=== PATIENT | male | born 1945 | race Caucasian/White ===

== ENCOUNTER 2020-10-07 12:48 | Day surgery (SDC) | payer MEDICARE, BC ==
[2020-10-07] MEDS ORDERED: Sodium Chloride 0.9% 10 ML Syringe FLUSH PRN (13:00)
[2020-10-07] MEDS ORDERED: Lactated Ringers 1,000 ML IV SCH (13:00)
[2020-10-07] MEDS ORDERED: Midazolam 1 MG/ML 2 ML SDV ONE (14:49)
[2020-10-07] MEDS ORDERED: Propofol 200 MG/20 ML SDV ONE (14:49)
--- NOTE | 2020-10-07 15:10 | PCM.PN ---
- General Info Date of Service: 10/07/20 - Review of Systems Systems Review Comment:: 75-year-old male here for screening colonoscopy. His last colon exam was over 10 years ago. He denies any recent change in bowel pattern or rectal bleeding. The patient is medically stable to proceed today. His recent history and physical is reviewed. No significant changes are noted. I have discussed the proposed colonoscopy with the patient. Risks such as but not limited to bleeding and GI injury reviewed. He agrees to proceed. - Patient Data Vitals - Most Recent: Last Vital Signs Temp 97.4 F 10/07/20 13:12 Pulse 88 10/07/20 13:12 Resp 18 10/07/20 13:12 BP 116/74 10/07/20 13:12 Pulse Ox 93 L 10/07/20 13:12 Weight - Most Recent: 79.379 kg Med Orders - Current: Current Medications Lactated Ringer's (Ringers, Lactated) 1,000 mls @ 50 mls/hr IV ASDIRECTED TREVOR Last Admin: 10/07/20 13:30 Dose: 50 mls/hr Documented by: Sodium Chloride (Sodium Chloride 0.9% 10 Ml Syringe) 10 ml FLUSH Q8HR PRN PRN Reason: keep vein open Discontinued Medications Midazolam HCl (Midazolam 1 Mg/Ml 2 Ml Sdv) Confirm Administered Dose 2 mg .ROUTE .STK-MED ONE Stop: 10/07/20 14:50 Propofol (Propofol 200 Mg/20 Ml Sdv) Confirm Administered Dose 400 mg .ROUTE .STK-MED ONE Stop: 10/07/20 14:50 Sepsis Event Note - Focused Exam Vital Signs: Vital Signs Temp Pulse Resp BP Pulse Ox 10/07/20 13:12 97.4 F 88 18 116/74 93 L - Problem List Review Problem List Initiated/Reviewed/Updated: Yes - My Orders Last 24 Hours: My Active Orders 10/06/20 16:00 Resuscitation Status Routine 10/07/20 Breakfast Nothing Per Oral Diet [DIET] 10/07/20 13:00 Peripheral IV Care [RC] . DIRECTED Lactated Ringers [Ringers, Lactated] 1,000 ml IV ASDIRECTED Sodium Chloride 0.9% [Saline Flush] 10 ml FLUSH Q8HR PRN Peripheral IV Insertion Adult [OM.PC] Routine 10/07/20 14:00 Patient to Empty Bladder [RC] ASDIRECTED 10/07/20 14:30 Verify Patient Consent Obtain [RC] ASDIRECTED - Assessment Assessment:: Colon cancer screening - Plan Plan:: Colonoscopy
--- NOTE | 2020-10-07 15:39 | PCM.OPNOTE ---
- General Post-Op/Procedure Note Date of Surgery/Procedure: 10/07/20 Operative Procedure(s): Colonoscopy Findings: Moderate Diverticulosis in Left Colon Pre Op Diagnosis: Colon Cancer Screening Post-Op Diagnosis: Diverticulosis Anesthesia Technique: MAC Primary Surgeon: Michael Dahl Pathology: none EBL in mLs: 0 Complications: None Condition: Good
--- NOTE | 2020-10-08 01:54 | OR ---
DATE OF SURGERY: 10/07/2020 SURGEON: Michael Dahl MD PREOPERATIVE DIAGNOSIS: Colon cancer screening. POSTOPERATIVE DIAGNOSIS: Left colon diverticulosis. OPERATION PERFORMED: Colonoscopy. INDICATIONS FOR SURGERY: This 75-year-old male presents today for screening colonoscopy. He denies any recent rectal bleeding and his last colonoscopy was over 10 years ago. FINDINGS: The patient has a moderate degree of diverticulosis in the left side of his colon. This does not appear to be acutely inflamed or otherwise complicated. Colon and rectum otherwise appear normal. DESCRIPTION OF PROCEDURE: The patient was taken to the operating room. He was given intravenous sedation and with him in the left lateral decubitus position, digital rectal exam was performed showing no rectal masses. The Olympus colonoscope was inserted into the rectum. Retroflexed examination of the rectal canal is performed. The scope was then carefully advanced under direct visualization through the entire length of the colon until the cecum was reached. Cecal acquisition is confirmed by noting the normal internal cecal anatomy including the appendiceal orifice and the ileocecal valve. The light is also noted to transilluminate the abdominal wall in the right lower quadrant. After examining the cecum, the scope was slowly withdrawn sequentially re- examining the colonic segments until the entire colon and rectum had been fully examined. The scope was removed and the patient was taken from the operating room in satisfactory condition. ESTIMATED BLOOD LOSS: Zero. COMPLICATIONS: None. PROGNOSIS: Good. /[id number]/MODL
== END 2020-10-07 17:05 | disposition home or self-care (01) ==
LOC: KA.SDS 12:48
PROVIDERS: ATTEND Surgery
DX: Z12.11 Encounter for screening for malignant neoplasm of colon (principal); K57.30 Diverticulosis of large intestine without perforation or abscess without bleeding; E78.00 Pure hypercholesterolemia, unspecified; Z88.7 Allergy status to serum and vaccine; Z79.82 Long term (current) use of aspirin; Z79.899 Other long term (current) drug therapy; Z98.890 Other specified postprocedural states; Z87.891 Personal history of nicotine dependence
CPT/HCPCS: J2250; J2704; J7120